=== PATIENT | female | born 1965 | race Caucasian/White ===

== ENCOUNTER → 2016-04-27 | Day surgery (SDC) | payer BC ==
[~2016-04-27] VITALS: Ht 167.6 cm; Wt 66.1 kg
[~2016-04-27] MED LIST: ACETAMINOPHEN 1000 MG/100 ML VIAL IV ONE; CEPH-459 PO; DO NOT ADM ANY ANTICOAGULANT DRUGS XX PRN; FAMOTIDINE 20 MG/2 ML VIAL ONE; HYDR-3516 PO; HYDR-3533 PO; INSULIN HUMAN REGULAR 1,000 UNITS/10 ML VIAL SQ PRN; IOHEXOL 350 MG/ML 10 ML VIAL (for RAD DIAG) ONE; LACTATED RINGER'S 1000 ML IV SCH; LORA-373 PO; METOPROLOL TARTRATE 25 MG TAB PO PRN; MIDAZOLAM HCL 2 MG/2 ML VIAL ONE; ONDANSETRON HCL 4 MG/2 ML VIAL IV PUSH ONE; ONDANSETRON HCL 4 MG/2 ML VIAL IV PUSH PRN; PERC5TAB12 PO; PNEU13P IM; PROPOFOL 200 MG/20 ML AMP IV ONE; SODIUM CHLORID 0.9% 500 ML IV SCH; TAMS5CAP PO; UROCTAB2 PO; ZOFR4TAB3 SL; ZOLO100T PO; ZOLO50TA PO; ePHEDrine/NS 25 MG/5 ML SYR IV ONE; oxyCODONE/ACETAMINOPHEN 5 MG/325 MG TAB PO PRN
[2016-04-27 07:20] VITALS: BP 139/79; PULSE 83; RESP 18; TEMP 98.1; O2SAT 98
[2016-04-27 07:34] LABS: AUTOMATED NEUTROPHIL # 1.7 TH/MM3 (1.8-7.7); BASOPHIL % 0.7 % (0.0-2.0); EOSINOPHIL # 0.1 TH/MM3 (0-0.4); EOSINOPHIL % 3.6 % (0.0-4.0); HEMATOCRIT 37.2 % (35.0-46.0); HEMO FLAGS DIFF FINAL; LYMPH % 45.2 % (9.0-44.0); LYMPHOCYTE # 1.8 TH/MM3 (1.0-4.8); MEAN CELL VOLUME 86.7 FL (80.0-100.0); MEAN CORPUSCULAR HEMOGLOBIN 30.1 PG (27.0-34.0); MEAN CORPUSCULAR HGB CONC 34.7 % (32.0-36.0); MONO % 10.1 % (0.0-8.0); NEUT % 40.4 % (16.0-70.0); PLATELET COUNT 179 TH/MM3 (150-450); RED BLOOD COUNT 4.29 MIL/MM3 (4.00-5.30); WHITE BLOOD COUNT 4.1 TH/MM3 (4.0-11.0)
--- NOTE | 2016-04-27 08:06 | RADRPT ---
EXAM DATE/TIME: 04/27/2016 07:38 [facility] COMPARISON: No previous studies available for comparison. INDICATIONS : Preop for left side ESWL. Renal calculi. MEDICAL HISTORY : Renal calculi. SURGICAL HISTORY : None. ENCOUNTER: Initial ACUITY: 1 day PAIN SCORE: 6/10 LOCATION: Left upper quadrant abdomen FINDINGS: There are several stones overlying the left kidney including 10 mm and 14 mm calculi overlying the ce ntral kidney and a 6 mm stone overlying the lower pole region. No suspicious calcifications are seen overlying the right flank. There are couple phleboliths overlie the pelvis. Intestinal gas pattern is nonspecific and benign. Regional skeleton grossly intact. CONCLUSION: Several left kidney stones Alin Rao MD on April 27, 2016 at 8:02 Board Certified Radiologist. This report was verified electronically.
--- NOTE | 2016-04-27 09:58 | PD.OP ---
Operative Report Date of Surgery: Apr 27, 2016 Preoperative Diagnosis: (1) Renal calculus, left Postoperative Diagnosis: (1) Renal calculus, left Procedure: Cystoscopy, left retrograde pyelogram, left ureteral stent placement and extracorporeal shockwave lithotripsy of left renal calculi Anesthesia: General Surgeon: Burton Rhodes Gas Appliance Adjuster(s): None Operation and Findings: Indication for procedure: Case of a pleasant 51-year-old female with history multiple large left renal calculi who presents today to undergo cystoscopy, left retrograde pyelogram, left ureteral stent placement and shockwave lithotripsy. Operative procedure in detail: Patient was brought to the operating room suite and placed supine on the lithotripsy table. She was then placed under general anesthesia. She was then repositioned in the dorsal lithotomy position and prepped and draped in normal sterile fashion. After appropriate timeout was undertaken her proceeded with cystoscopic evaluation utilizing the rigid cystoscope with the 20 Malawian sheath and 30 lens. Both right and left ureteral orifices were in correct anatomic position effluxing clear yellow urine. There were no bladder mucosal lesions, calculi or diverticula formation. I then utilized a 5 Malawian open-ended ureteral catheter and performed a left retrograde pyelogram to outline the collecting system. A 0.35 sensor wire was easily advanced up the left ureter with the tip coiled within the left renal pelvis. The open-ended catheter was then exchanged for a 24 cm 6 Malawian alf stent. The stent was passed under both cystoscopic and fluoroscopic guidance without difficulty. Was a stent was in proper position the trailing string was removed. The bladder was drained of irrigant fluid and the cystoscope withdrawn. The patient was then repositioned in the supine position and subsequently received extraoral shockwave lithotripsy. The Yuppics Piezolith 3000 device was utilized and the patient received a total of 3000 shocks with a maximum power level setting of 20. The cluster stones located at the mid to upper left kidney appeared to spread out somewhat consistent with fragmentation. The patient tolerated the procedures without complications and was transferred to PACU in satisfactory condition. Burton Rhodes MD Apr 27, 2016 09:58
[2016-04-27 11:51] VITALS: BP 121/61; PULSE 79; RESP 20; TEMP 97.4; O2SAT 95
== END | disposition home or self-care (01) ==
LOC: HSDC 06:40
PROVIDERS: ATTEND Urology
DX: N20.0 Calculus of kidney (principal)
CPT/HCPCS: 00873; 50590; 52332; 74000; 82310; 83970; 85025; C1769; J0131; J2250; J2405; J3010; J7120; Q9967

== ENCOUNTER 2016-06-03 06:44 | Observation (INO) | payer BC ==
[~2016-06-03] VITALS: Ht 167.6 cm; Wt 61.4 kg
[2016-06-03] VITALS (11 sets, daily range): BP systolic 89–131; BP diastolic 54–90; PULSE 64–90; RESP 18–20; TEMP 96.1–98; O2SAT 92–98
[~2016-06-03 06:44] MED LIST changes: -ACETAMINOPHEN 1000 MG/100 ML VIAL IV ONE; -CEPH-459 PO; -DO NOT ADM ANY ANTICOAGULANT DRUGS XX PRN; -FAMOTIDINE 20 MG/2 ML VIAL ONE; -HYDR-3516 PO; -INSULIN HUMAN REGULAR 1,000 UNITS/10 ML VIAL SQ PRN; -IOHEXOL 350 MG/ML 10 ML VIAL (for RAD DIAG) ONE; -LACTATED RINGER'S 1000 ML IV SCH; -METOPROLOL TARTRATE 25 MG TAB PO PRN; -MIDAZOLAM HCL 2 MG/2 ML VIAL ONE; -ONDANSETRON HCL 4 MG/2 ML VIAL IV PUSH ONE; -ONDANSETRON HCL 4 MG/2 ML VIAL IV PUSH PRN; -PERC5TAB12 PO; -PROPOFOL 200 MG/20 ML AMP IV ONE; -SODIUM CHLORID 0.9% 500 ML IV SCH; -UROCTAB2 PO; -ZOFR4TAB3 SL; -ZOLO50TA PO; -ePHEDrine/NS 25 MG/5 ML SYR IV ONE; -oxyCODONE/ACETAMINOPHEN 5 MG/325 MG TAB PO PRN
[2016-06-03] MEDS: SODIUM CHLORIDE 0.9% 1000 ML IV SCH (07:30)
[2016-06-03] MEDS ORDERED: LEVOFLOXACIN 500 MG PREMIX 100 ML - nephrostomy tube insertion or exchange IV SCH (07:30)
[2016-06-03 07:58] LABS: APTT (PATIENT) 27.9 SEC (24.3-30.1); PROTHROMBIN TIME - PATIENT 10.5 SEC (9.8-11.6)
[2016-06-03] MEDS ORDERED: fentaNYL CITRATE 250 MCG/5 ML AMP ONE (08:39)
[2016-06-03] MEDS ORDERED: MIDAZOLAM HCL 5 MG/5 ML VIAL ONE (08:39)
[2016-06-03] MEDS ORDERED: IOHEXOL 350 MG/ML 50 ML BTL (for RAD DIAG) ONE (09:29)
--- NOTE | 2016-06-03 09:37 | PD.RAD ---
Post Procedure Progress Note Pre Procedure Diagnosis: (1) Kidney stone on left side Post Procedure Diagnosis: (1) Kidney stone on left side Procedure Date: Jun 03, 2016 Supervising Radiologist: Alin Rao Proceduralist/Assist: RT Jefry(R)() Anesthesia: Local, Conscious Sedation Plan of Activity Patient to Unit: ROPU Patient Condition: Good See PACS Report for procedural detail/treatment Drainage Procedure Procedure 1 Imaging Guidance: Fluoroscopy Side: Left Procedure Type: Nephrostomy, Ureteral Stent Procedure: Placement Drainage: [place] drainage Alin Rao MD Jun 03, 2016 09:37
[2016-06-03] MEDS ORDERED: oxyCODONE/ACETAMINOPHEN 5 MG/325 MG TAB PO PRN (09:45)
[2016-06-03] MEDS ORDERED: HYDROmorphone HCL PF 1 MG/ML VIAL IVS PRN ×2 (09:45)
[2016-06-03] MEDS: oxyCODONE/ACETAMINOPHEN 5 MG/325 MG TAB PO PRN ×2 (09:54→11:46)
--- NOTE | 2016-06-03 10:40 | RADRPT ---
EXAM DATE/TIME: 06/03/2016 08:58 [facility] COMPARISON: No previous studies available for comparison. INDICATIONS : Patient with a history of left renal calculi. MEDICAL HISTORY : Kidney stones Panic disorders Anxiety SURGICAL HISTORY : Lt ureteral stent Shockwave lithotripsy ENCOUNTER: Initial ACUITY: 1 month PAIN SCORE: 4/10 LOCATION: Left lower quadrant FLUORO TIME: 6.4 minutes IMAGE SERIES: 1 SEDATION TIME: 15 minutes CONTRAST: 10 cc Omnipaque (iohexol) 350 MEDICATION(S): 1.) 3 mg midazolam (Versed) IV 2.) 150 mcg fentanyl (Sublimaze) IV Prophylactic antibiotics were administered with appropriate pre-procedure timing. DEVICE(S): 1.) 8 Lithuanian nephrostomy catheter 2.) 4FR [place] Cobra catheter PROCEDURE : 1.percutaneous nephrostomy 2. ureteral stent placement with fluoroscopic guidance TECHNIQUE: The patient was placed prone on the fluoroscopy table. The back was prepped in sterile fashion. Full sterile technique was used, including cap, mask, sterile gloves and gown and a large s terile sheet. Hand hygiene and 2% chlorhexidine and/or betadine/alcohol prep was [facility] cutaneous [facility]epsis. The skin and subcutaneous tissues were infiltrated with local anesthetic solution. Under direct ultrasound and fluoroscopic guidance, a 22 gauge Chiba needle was used to access the uri nary collecting system at an appropriate location for management of the patient's stones. A 0.018 inc h guidewire was introduced and manipulated into the proximal ureter. The AccuStick dilator was introd uced. The transparenchymal tract was tested over a Toughy-Dalia adapter revealing direct access into the collecting system with no vascular opacification noted. The AccuStick sheath was then inserted. A 0.035 inch Glidewire was introduced through the sheath and directed into the ureter. The sheath was removed. A 4 Lithuanian catheter was used to assist with manipulation of the guidewire down the ureter an d into the urinary bladder under direct fluoroscopic guidance. Small volume contrast injection reveal ed satisfactory positioning in the bladder lumen. A FlexFinder guidewire was inserted and coiled into the bladder. A 5 Lithuanian vascular sheath was then inserted allowing placement of a second guidewire. A 4 Lithuanian Glidex Cobra catheter was then inserted and manipulated down the left ureter and coiled an d the urinary bladder. An 8 Lithuanian nephrostomy catheter was introduced and formed up in the renal pel vis. The catheters were secured with silk suture and labeled. The nephrostomy was connected to gravit y drainage and the stent catheter was capped. The patient tolerated the procedure well and was taken to recovery in stable condition. Continues pul se oximetry and EKG monitoring with hemodynamic monitoring was performed throughout. Intravenous cons cious sedation was administered as outlined above. CONCLUSION: Uncomplicated left percutaneous nephrostomy and ureteral stent catheter placement as abov e. Alin Rao MD on June 03, 2016 at 10:24 Board Certified Radiologist. This report was verified electronically.
[2016-06-03] MEDS ORDERED: ONDANSETRON HCL 4 MG/2 ML VIAL IV PUSH ONE (13:45)
[2016-06-03] MEDS ORDERED: ONDANSETRON HCL 4 MG/2 ML VIAL ONE (13:50)
[2016-06-03] MEDS ORDERED: LORazepam 0.5 MG TAB PO PRN (15:45)
[2016-06-03] MEDS ORDERED: ACETAMINOPHEN/HYDROcodone 325 MG/5 MG TAB PO PRN (15:45)
[2016-06-03] MEDS: KETOROLAC TROMETHAMINE 30 MG/ML (IVP) VIAL IV PUSH PRN ×2 (15:56→22:22)
--- NOTE | 2016-06-03 16:42 | PD.CONS ---
HPI Service [facility] Hospitalists Consult Requested By Dr. Rao Reason for Consult Pain management Primary Care Physician Eduarda Veloz MD Diagnoses: History of Present Illness This is a pleasant 51-year-old female with history of multiple large left renal calculi who underwent left percutaneous nephrostomy tube placement in interventional radiology. Postprocedure, patient had significant pain, was very anxious and panicky. Indicates that this is the first time she's had a percutaneous drain placed and did not expect this type of pain. In April, she underwent cystoscopy, left retrograde pyelogram, left ureteral stent placement and extracorporeal shockwave lithotripsy of left renal calculi. Indicates she is due to have another procedure this Monday. She doesn't want to take IV narcotics, states that she doesn't like the way they make her feel. Toradol has been given and her pain is well-controlled. Indicates the pain is worst when she moves but at this time it is stable. Denies any chest pain, no shortness of breath, has had dysuria. Denies any fever, chills. Hospitalist services are requested for pain management and overnight admission. ([facility]) Review of Systems Constitutional: DENIES: Diaphoretic episodes, Fatigue, Fever, Weight gain, Weight loss, Chills, Dizziness, Change in appetite, Night Sweats Endocrine: DENIES: Abnorml menstrual pattern, Heat/cold intolerance, Polydipsia , Polyuria, Polyphagia Eyes: DENIES: Blurred vision, Diplopia, Eye inflammation, Eye pain, Vision loss , Photosensitivity, Double Vision Ears, nose, mouth, throat: DENIES: Tinnitus, Hearing loss, Vertigo, Nasal discharge, Oral lesions, Throat pain, Hoarseness, Ear Pain, Running Nose, Epistaxis, Sinus Pain, Toothache, Odynophagia Respiratory: DENIES: Apneas, Cough, Snoring, Wheezing, Hemoptysis, Sputum production, Shortness of breath Cardiovascular: DENIES: Chest pain, Palpitations, Syncope, Dyspnea on Exertion , PND, Lower Extremity Edema, Orthopnea, Claudication Gastrointestinal: DENIES: Abdominal pain, Black stools, Bloody stools, Constipation, Diarrhea, Nausea, Vomiting, Difficulty Swallowing, Anorexia Genitourinary: DENIES: Abnormal vaginal bleeding, Dysmenorrhea, Dyspareunia, Sexual dysfunction, Urinary frequency, Urinary incontinence, Urgency, Hematuria , Dysuria, Nocturia, Vaginal discharge Musculoskeletal: DENIES: Joint pain, Muscle aches, Stiffness, Joint Swelling, Back pain, Neck pain Integumentary: DENIES: Abnormal pigmentation, Pruritus, Rash, Nail changes, Breast masses, Breast skin changes, Nipple discharge Hematologic/lymphatic: DENIES: Bruising, Lymphadenopathy Immunologic/allergic: DENIES: Eczema, Urticaria Neurologic: DENIES: Abnormal gait, Headache, Localized weakness, Paresthesias, Seizures, Speech Problems, Tremor, Poor Balance Psychiatric: COMPLAINS OF: Anxiety, DENIES: Confusion, Mood changes, Depression, Hallucinations, Agitation, Suicidal Ideation, Homicidal Ideation, Delusions Other Left flank pain, anxiety (Rosey Voss) Past Family Social History Past Medical History Elevated LFTs, possibly secondary to supplements and vitamins, now back to normal. Anxiety, panic disorder. Left kidney stones Hypothyroid Past Surgical History status post lithotripsy 2. Cystoscopy, left retrograde pyelogram, left ureteral stent placement and extracorporeal shockwave lithotripsy of left renal calculi 04/27/2016 Reported Medications Reported Meds & Active Scripts Active Zoloft (Sertraline HCl) 100 Mg Tab 100 Mg PO DAILY next refill must be from mental health (05/25/16) Lortab (Hydrocodone-Acetaminophen) 5-325 Mg Tab 1-2 Tab PO Q6H PRN Reported Lorazepam 0.5 Mg Tab 0.5 Mg PO DAILY PRN (Rosey Voss) Allergies: Coded Allergies: *MDRO Multi-Drug Resistant Organism (Verified Allergy, Unknown, 04/26/16) MRSA Active Ordered Medications Inpatient Medications Acetaminophen/ Hydrocodone Bitart ([place]lake 5-325 Mg) 1 tab Q6H PRN PO PAIN 1-3; Start 06/03/16 at 15:45 Hydromorphone HCl (Dilaudid Pf Inj) 1 mg UNSCH PRN IVS PAIN SCALE 6 TO 10; Start 06/03/16 at 09:45 Ketorolac Tromethamine (Toradol Inj) 15 mg Q6H PRN IV PUSH pain 4-10 Last administered on 06/03/16t 15:56; Start 06/03/16 at 15:45 Levofloxacin/ Dextrose (Levaquin 500 Mg Premix Inj) 100 ml @ 100 mls/hr FISH CUTTER IV Last administered on 06/03/16 07:39; Start 06/03/16 at 07:30; Stop at 07:29 Lorazepam (Ativan) 0.5 mg DAILY PRN PO ANXIETY; Start 06/03/16 at 15:45 Oxycodone/ Acetaminophen (Percocet 5-325 Mg) 1 tab UNSCH PRN PO PAIN SCALE 1 TO 5; Start 06/03/16 at 09:45 Sertraline HCl (Zoloft) 100 mg DAILY PO ; Start 06/04/16 at 09:00 Sodium Chloride 1,000 ml @ 30 mls/hr Q24H IV Last administered on 06/03/16 07 :30; Start 06/03/16 at 07:30; Stop 06/06/16 at 07:29 Family History Mother at age 68, she was diagnosed with gallbladder cancer. She fell and suffered a PE. Father at age 81, sudden /unknown She has 2 siblings, 56 and 62, alive and well. Grandparents lived to advanced age 81, 102, 97 and 94 respectively. Social History Works as a respiratory therapist at [employer].. She is originally from [place]. She is , has 4 adult children. No tobacco, no alcohol, no substance abuse. (Rosey Voss) Physical Exam Vital Signs Vital Signs Date Time Temp Pulse Resp B/P Pulse Ox O2 Delivery O2 Flow Rate FiO2 06/03/16 15:15 68 18 108/59 96 06/03/16 14:15 113/65 06/03/16 13:45 90 18 89/54 92 06/03/16 11:45 75 18 111/76 94 06/03/16 10:45 72 18 105/67 95 06/03/16 10:15 64 18 111/78 97 06/03/16 09:45 71 18 116/75 93 06/03/16 09:30 97.6 77 18 113/76 94 06/03/16 07:30 95 Room Air 06/03/16 07:09 98.0 75 20 131/90 95 Physical Exam GENERAL: This is a well-nourished, well-developed patient, in no apparent distress. SKIN: No rashes, ecchymoses or lesions. Cool and dry. HEAD: Atraumatic. Normocephalic. No temporal or scalp tenderness. EYES: Pupils equal round and reactive. Extraocular motions intact. No scleral icterus. No injection or drainage. ENT: Nose without bleeding, purulent drainage or septal hematoma. Throat without erythema, tonsillar hypertrophy or exudate. Uvula midline. Airway patent. NECK: Trachea midline. No JVD or lymphadenopathy. Supple, nontender, no meningeal signs. CARDIOVASCULAR: Regular rate and rhythm without murmurs, gallops, or rubs. RESPIRATORY: Clear to auscultation. Breath sounds equal bilaterally. No wheezes , rales, or rhonchi. GASTROINTESTINAL: Abdomen soft, non-tender, nondistended. No hepato-splenomegaly , or palpable masses. No guarding. Left flank noted with nephrostomy percutaneous drain, hematuria noted. MUSCULOSKELETAL: Extremities without clubbing, cyanosis, or edema. No joint tenderness, effusion, or edema noted. No calf tenderness. Negative Homans sign bilaterally. NEUROLOGICAL: Awake and alert. Cranial nerves II through XII intact. Motor and sensory grossly within normal limits. Five out of 5 muscle strength in all muscle groups. Normal speech. Laboratory Laboratory Tests Test 06/03/16 07:30 Prothrombin Time 10.5 Prothromb Time International 1.0 Ratio Activated Partial 27.9 Thromboplast Time (Rosey Voss) Imaging Last Impressions Ureteral Stent Placement 06/03/16 0736 Signed Impressions: Service Date/Time: Friday, June 03, 2016 08:58 - CONCLUSION: Uncomplicated left percutaneous nephrostomy and ureteral stent catheter placement as above. Alin Rao MD ([facility]y Voss) A/P Diagnosis: (1) Uncontrolled pain (2) Panic anxiety syndrome (3) percutaneous left nephrostomy (4) Renal calculus, left (5) Hydronephrosis determined by ultrasound Assessment and Plan Thank you for this consultation, we will assist with medical management 51-year-old with history of kidney stones, status post left percutaneous nephrostomy tube placement. Postprocedure, patient with significant pain very anxious. Admitted overnight for postoperative pain control. Patient reluctant to take IV narcotics -Continue with pain management, Toradol 50 mg IV every 6 when necessary, -[place] 5 one tablet every 6 when necessary for pain, Dilaudid 1 mg every 3 when necessary for severe pain. History multiple large left renal calculi, status post left percutaneous nephrostomy tube placement. Recent cystoscopy, left retrograde pyelogram, left ureteral stent placement and shockwave lithotripsy in April. Monitor urine output Monitor surgical site -Patient due to have another urological procedure on Monday. Anxiety and panic attacks Ativan when necessary Home medications reviewed, initiated as indicated SCDs for DVT prophylaxis Plan of care has been discussed with the patient, attending and registered nurse. Further management of the patient will be dependent on the hospital course If the patient remains stable, she will likely be discharged tomorrow morning This patient was seen by myself and Dr. Hutchinson, this consultation is written on his behalf (Rosey Voss) Assessment and Plan seen and examined by myself , Dr Hutchinson in room F 66 in the ED LEFT FLANK pain following left perc nephrostomy pain better with Toradol (Radha Hutchinson MD) Rosey Voss Jun 03, 2016 16:42 Radha Hutchinson MD Jun 03, 2016 17:41
[2016-06-03 19:34] LABS: BICARBONATE 26.6 MEQ/L (21.0-32.0); INDIRECT BILIRUBIN 0.1 MG/DL (0.0-0.8); MAGNESIUM 1.8 MG/DL (1.5-2.5); POTASSIUM 3.7 MEQ/L (3.5-5.1); TOTAL BILIRUBIN ADULT 0.2 MG/DL (0.2-1.0)
--- NOTE | 2016-06-03 19:34 | HHI.DCPOC ---
Discharge Care Plan Diagnosis: (1) Uncontrolled pain (2) Renal calculus, left (3) percutaneous left nephrostomy Your Health Problems Are: Anxiety Inflammation Urinary Difficulties Goals to Promote Your Health * To prevent worsening of your condition and complications * To maintain your health at the optimal level Directions to Meet Your Goals Take your medications as prescribed Follow your dietary instruction Follow activity as directed Keep your appointments as scheduled Take your immunizations and boosters as scheduled If your symptoms worsen call your PCP, if no PCP go to Urgent Care Center or Emergency Room Smoking is Dangerous to Your Health. Avoid second hand smoke Call the 24-hour hour crisis hotline for domestic abuse at [facility]. [facility] Jun 03, 2016 19:33
[2016-06-04 00:14] VITALS: BP 101/58; PULSE 68; RESP 18; TEMP 97.6; O2SAT 96
[2016-06-04] MEDS: KETOROLAC TROMETHAMINE 30 MG/ML (IVP) VIAL IV PUSH PRN ×2 (06:25→13:57)
[2016-06-04 06:28] VITALS: BP 100/55; PULSE 71; RESP 18; TEMP 97.6; O2SAT 96
[2016-06-04 08:06] LABS: BASOPHIL % 0.6 % (0.0-2.0); EOSINOPHIL # 0.2 TH/MM3 (0-0.4); EOSINOPHIL % 4.7 % (0.0-4.0); HEMATOCRIT 36.1 % (35.0-46.0); HEMO FLAGS DIFF FINAL; LYMPH % 40.9 % (9.0-44.0); LYMPHOCYTE # 1.9 TH/MM3 (1.0-4.8); MEAN CELL VOLUME 87.3 FL (80.0-100.0); MEAN CORPUSCULAR HEMOGLOBIN 29.1 PG (27.0-34.0); MEAN CORPUSCULAR HGB CONC 33.4 % (32.0-36.0); MONO % 9.6 % (0.0-8.0); NEUT % 44.2 % (16.0-70.0); PLATELET COUNT 193 TH/MM3 (150-450); RED BLOOD COUNT 4.14 MIL/MM3 (4.00-5.30); RED CELL DISTRIBUTION WIDTH 13.1 % (11.6-17.2); WHITE BLOOD COUNT 4.5 TH/MM3 (4.0-11.0)
[2016-06-04 08:30] VITALS: BP 112/62; PULSE 75; RESP 18; O2SAT 96
[2016-06-04] MEDS ORDERED: SERTRALINE HCL 100 MG TAB PO SCH (09:00)
[2016-06-04] MEDS: SODIUM CHLORIDE 0.9% 1000 ML IV SCH (10:51)
--- NOTE | 2016-06-04 11:44 | HHI.PR ---
Subjective Interval History Alert, oriented, pain well-controlled, concerned about low blood pressure Review of Systems Constitutional Constitutional Remarks Mild left flank pain, mild anxiety, 10 systems reviewed and otherwise negative Vitals/Results Intake & Output 06/03/16 06/03/16 06/04/16 15:00 23:00 07:00 Intake Total 750 ml 600 ml Output Total 850 ml Balance -100 ml 600 ml Intake Oral 600 ml IV Total 750 ml Output Urine Total 850 ml # Voids 2 1 Vital Signs Vital Signs Date Time Temp Pulse Resp B/P Pulse Ox O2 Delivery O2 Flow Rate FiO2 06/04/16 08:30 75 18 112/62 96 06/04/16 06:28 97.6 71 18 100/55 96 06/04/16 00:14 97.6 68 18 101/58 96 06/03/16 19:24 98.0 74 20 103/58 96 06/03/16 17:24 96.1 68 18 99/63 98 06/03/16 15:15 68 18 108/59 96 06/03/16 14:15 113/65 06/03/16 13:45 90 18 89/54 92 06/03/16 11:45 75 18 111/76 94 CBC/BMP: 06/04/16 0714 06/03/16 1845 Lab Results Laboratory Tests Test 06/03/16 06/04/16 18:45 07:14 Sodium Level 137 MEQ/L Potassium Level 3.7 MEQ/L Chloride Level 104 MEQ/L Carbon Dioxide Level 26.6 MEQ/L Anion Gap 6 MEQ/L Blood Urea Nitrogen 10 MG/DL Creatinine 0.89 MG/DL Estimat Glomerular Filtration 66 ML/MIN Rate Random Glucose 114 MG/DL Lactic Acid Level 1.4 mmol/L Calcium Level 8.7 MG/DL Phosphorus Level 3.1 MG/DL Magnesium Level 1.8 MG/DL Total Bilirubin 0.2 MG/DL Direct Bilirubin 0.1 MG/DL Indirect Bilirubin 0.1 MG/DL Aspartate Amino Transf 21 U/L (AST/SGOT) Alanine Aminotransferase 32 U/L (ALT/SGPT) Alkaline Phosphatase 82 U/L Total Protein 6.9 GM/DL Albumin 3.4 GM/DL White Blood Count 4.5 TH/MM3 Red Blood Count 4.14 MIL/MM3 Hemoglobin 12.1 GM/DL Hematocrit 36.1 % Mean Corpuscular Volume 87.3 FL Mean Corpuscular Hemoglobin 29.1 PG Mean Corpuscular Hemoglobin 33.4 % Concent Red Cell Distribution Width 13.1 % Platelet Count 193 TH/MM3 Mean Platelet Volume 8.2 FL Neutrophils (%) (Auto) 44.2 % Lymphocytes (%) (Auto) 40.9 % Monocytes (%) (Auto) 9.6 % Eosinophils (%) (Auto) 4.7 % Basophils (%) (Auto) 0.6 % Neutrophils # (Auto) 2.0 TH/MM3 Lymphocytes # (Auto) 1.9 TH/MM3 Monocytes # (Auto) 0.4 TH/MM3 Eosinophils # (Auto) 0.2 TH/MM3 Basophils # (Auto) 0.0 TH/MM3 CBC Comment DIFF FINAL Differential Comment Physical Exam General General Appearance: Well Nourished, Comfortable, Anxious Eyes Eye Exam: Pupils Reactive Ears & Nose Ears & Nose Exam: Nasal Mucosa [place] Throat Throat Exam: Oral Mucosa [place] & Moist Neck Neck Exam: Trachea Midline Pulmonary Resp Exam: Breath Sounds Equal, No Distress Cardiology CV Exam: Normal Sinus Rhythm, Good Perfusion Gastrointestinal/Abdomen GI Exam: Non-Tender, Bowel Sounds Present Musculoskeletal MS Exam: Normal Tone, Good Strength Integumentary Skin Exam: Warm, Dry Extremeties Extremities Exam: No Edema Neurologic Neuro Exam: Alert, Awake, Oriented, Speech Clear, Moving All Extremities, Fireboat Operator Equal, No Focal Deficits Psychiatric Psych Exam: Appropriate Responses Assessment/Plan Assessment/Plan Diagnosis: Relatively low blood pressure Uncontrolled pain, better controlled now Panic anxiety syndrome, well controlled percutaneous left nephrostomy , without problems Renal calculus, left Hydronephrosis determined by ultrasound Plan IV fluids Check orthostatics Give IV albumin if orthostatics are positive Continue high intake of oral liquids Advice to have high intake of salt for the next few days Could be discharged home later today Continue pain management with as needed Lortab Discussed with patient Discussed with nurse Radha Hutchinson MD Jun 04, 2016 11:44
[2016-06-04] MEDS ORDERED: ALBUMIN HUMAN 25% 12.5 GM/50 ML BAGP IV ONE (11:45)
[2016-06-04 12:05] VITALS: BP_SYST 107; BP_SYST 114; BP_DIAS 58; BP_DIAS 65; PULSE 84; RESP 18; TEMP 96.8; O2SAT 84
[2016-06-14] MEDS ORDERED: CEPH-459 PO (08:32)
[2016-06-30] MEDS ORDERED: UROCTAB2 PO (12:20)
== END 2016-06-04 16:54 | disposition home or self-care (01) ==
LOC: HROP 06:44 → HRIP 06:51 → HROP 17:12 → NEPFCDU 17:13
PROVIDERS: ADMIT Urology; ATTEND Urology
DX: N13.2 Hydronephrosis with renal and ureteral calculous obstruction (principal); G89.18 Other acute postprocedural pain; E03.9 Hypothyroidism, unspecified; F41.0 Panic disorder [episodic paroxysmal anxiety]
CPT/HCPCS: 50695; 80048; 80076; 83605; 83735; 84100; 85025; 85610; 85730; 99152; C1729; C1769; C1887; C1894; G0378; J1170; J1885; J1956; J2250; J2405; J3010; J7030; Q9967

== ENCOUNTER 2016-06-06 06:12 | Observation (INO) | payer BC ==
[~2016-06-06] VITALS: Ht 167.6 cm; Wt 65.7 kg
[~2016-06-06 06:12] MED LIST changes: -TAMS5CAP PO
[2016-06-06] MEDS ORDERED: ceFAZolin 1,000 MG/NS 100 ML IV SCH ×2 (06:45)
[2016-06-06] MEDS ORDERED: INSULIN HUMAN REGULAR 1,000 UNITS/10 ML VIAL SQ PRN (07:00)
[2016-06-06] MEDS ORDERED: SODIUM CHLORID 0.9% 500 ML IV PRN (07:00)
[2016-06-06] MEDS ORDERED: METOPROLOL TARTRATE 25 MG TAB PO PRN (07:00)
[2016-06-06] MEDS ORDERED: CHLORHEXIDINE GLUCONATE 2 % 1 PACK (2 CLOTHS) TOPICAL PRN (07:00)
[2016-06-06] MEDS ORDERED: LACTATED RINGER'S 1000 ML IV PRN (07:00)
[2016-06-06] MEDS ORDERED: POVIDONE IODINE 5% (ANTISEPSIS KIT) 4 APPLICATIONS EACH NARE PRN (07:00)
[2016-06-06 07:02] VITALS: BP 121/82; PULSE 72; RESP 16; TEMP 97.6; O2SAT 95
[2016-06-06 07:34] LABS: AUTOMATED NEUTROPHIL # 2.1 TH/MM3 (1.8-7.7); EOSINOPHIL # 0.3 TH/MM3 (0-0.4); EOSINOPHIL % 6.3 % (0.0-4.0); HEMATOCRIT 36.3 % (35.0-46.0); HEMO FLAGS DIFF FINAL; LYMPH % 38.8 % (9.0-44.0); LYMPHOCYTE # 1.8 TH/MM3 (1.0-4.8); MEAN CELL VOLUME 86.5 FL (80.0-100.0); MEAN CORPUSCULAR HEMOGLOBIN 30.1 PG (27.0-34.0); MEAN CORPUSCULAR HGB CONC 34.8 % (32.0-36.0); MONO % 8.6 % (0.0-8.0); NEUT % 45.3 % (16.0-70.0); PLATELET COUNT 220 TH/MM3 (150-450); RED BLOOD COUNT 4.19 MIL/MM3 (4.00-5.30); RED CELL DISTRIBUTION WIDTH 13.6 % (11.6-17.2); WHITE BLOOD COUNT 4.6 TH/MM3 (4.0-11.0)
[2016-06-06] MEDS ORDERED: ACETAMINOPHEN 1000 MG/100 ML VIAL IV ONE (07:45)
[2016-06-06] MEDS ORDERED: MIDAZOLAM HCL 2 MG/2 ML VIAL ONE (07:56)
[2016-06-06] MEDS ORDERED: IOHEXOL 300 MG/ML 50 ML BTL (for RAD DIAG) ONE (08:53)
[2016-06-06] MEDS ORDERED: Post-op Orders (for Pharmacy) MISC XX ONE (10:59)
--- NOTE | 2016-06-06 11:04 | PD.OP ---
Operative Report Date of Surgery: Jun 06, 2016 Preoperative Diagnosis: (1) Renal calculus, left Postoperative Diagnosis: (1) Renal calculus, left Procedure: Left percutaneous nephrolithotomy, left nephrostogram and exchange of left nephrostomy tube Anesthesia: General Surgeon: Burton Rhodes Chartered Wealth Manager(s): None Operation and Findings: Indication for procedure: Case of a pleasant 51-year-old female with multiple large left renal calculi refractory to shockwave lithotripsy who presents now to undergo a left percutaneous nephrolithotomy. Patient had a left nephrostomy tube placed by interventional radiology several days ago. Procedure in detail: Patient was brought to the operating suite and placed under general endotracheal anesthesia while still on the stretcher. She was then moved over to the OR table in the prone position. All pressure points were adequately padded. Next she was prepped and draped in normal sterile fashion. After an appropriate timeout was undertaken I proceeded with advancing a sensor 0.035 wire down the previously placed nephroureteral catheter. The wire was easily advanced all the way down to the patient's urinary bladder and the catheter was withdrawn. The 8 [place] pigtail nephrostomy tube was then removed over a wire as well without any difficulty. The nephrostomy tube site was enlarged with a #11 blade Debbi 1 cm in length and a NephroMax balloon dilatation catheter was advanced over the wire with the tip of the balloon catheter within the left renal pelvis as evident on fluoroscopy. The balloon was then inflated to 20 mt of pressure and the nephrostomy sheath was easily advanced over the balloon and the balloon subsequently deflated and withdrawn. The nephroscope was then utilized and advanced through the sheath with easy entry into the left renal pelvis. The upper coil of the previously placed double-J stent could be clearly seen. A second 0.035 wire was advanced through the nephroscope and further advanced into the urinary bladder is evident with fluoroscopy and the scope was withdrawn. The 2 guidewires were then secured to a sterile drape with hemostat. The nephroscope was reintroduced through the sheath and the stones involving the left renal pelvis were clearly visualized. The [employer] wand was utilized to break up the stones under direct vision. Several of the larger fragments were retrieved with the flexible forceps and sent off for chemical analysis. I systematically explored the left kidney utilizing fluoroscopy to track and fragment the multiple left renal calculi. When I could no longer reach any stone fragments with nephroscope. If possible cystoscope was utilized and several small fragments were removed with the 2.4 [place] Islander basket under direct vision. Fluoroscopy failed to demonstrate any significant remaining stones and the flexible cystoscope was withdrawn. I next placed a 12 [place] pigtail nephrostomy tube under fluoroscopic guidance over one of the previously past guidewires and the loop was coiled within the left renal pelvis. The tethering cord was adjusted and locked to keep the loop coiled. A nephrostogram was then performed to outline the collecting system and verify placement of the nephrostomy tube. The nephrostomy tube was secured to the skin with a 2-0 silk stitch and a sterile dressing placed around the nephrostomy site. Patient tolerated the procedures well without complications and was transferred to the PACU in satisfactory condition. Burton Rhodes MD Jun 06, 2016 11:04
[2016-06-06] MEDS ORDERED: HYDROmorphone HCL PF 2 MG/ML VIAL IV PRN (11:15)
[2016-06-06] MEDS ORDERED: SODIUM CHLORIDE 0.9% FLUSH 10 ML FLUSH IV FLUSH PRN (11:15)
[2016-06-06] MEDS: LACTATED RINGER'S 1000 ML INJ 1,000 ML IV SCH ×2 (11:42→21:09)
[2016-06-06] MEDS ORDERED: DO NOT ADM ANY ANTICOAGULANT DRUGS PRN (11:45)
[2016-06-06] MEDS ORDERED: *MEPERIDINE 25 MG INJ VIAL PERIprocedural Use ONLY ONE (11:45)
[2016-06-06] MEDS ORDERED: *ONDANSETRON 4 MG VIAL PERIprocedural Use ONLY ONE (11:52)
[2016-06-06] MEDS ORDERED: ONDANSETRON HCL 4 MG/2 ML VIAL IV PUSH ONE (12:00)
[2016-06-06] MEDS ORDERED: PHENYLEPH/NS 1000 MCG/10 ML SYR IV ONE (12:00)
[2016-06-06] MEDS ORDERED: PROPOFOL 200 MG/20 ML AMP IV ONE (12:00)
[2016-06-06] MEDS ORDERED: ePHEDrine/NS 25 MG/5 ML SYR IV ONE (12:00)
[2016-06-06] MEDS ORDERED: NEOSTIGMINE 3 MG/3 ML SYR IV ONE (12:00)
--- NOTE | 2016-06-06 13:27 | RADRPT ---
EXAM DATE/TIME: 06/06/2016 10:04 [facility] COMPARISON: ABDOMEN KUB ONLY, April 27, 2016, 7:38. INDICATIONS : Stones, stent change, left kidney lithotripsy. MEDICAL HISTORY : Left kidney stones. SURGICAL HISTORY : Left kidney lithotripsy. ENCOUNTER: Initial ACUITY: 2 weeks PAIN SCORE: Non-responsive. LOCATION: Left abdomen. FINDINGS: The indwelling left ureteral stent and nephrostomy tube appear to be adequate in position. Faint cont rast of the pelvicalyceal system is noted. There is probable persistent calculus within a lower pole calyx on the left. CONCLUSION: Left internal ureteral stent and nephrostomy tube appear to be adequate in positions. Probable residu al calculus within a lower pole calyx. Segundo Hicks MD on June 06, 2016 at 13:23 Board Certified Radiologist. This report was verified electronically.
[2016-06-06] MEDS ORDERED: fentaNYL CITRATE 250 MCG/5 ML AMP ONE (13:42)
[2016-06-06] MEDS: ONDANSETRON HCL 4 MG/2 ML VIAL IV PRN (14:34)
[2016-06-06] MEDS: HYDROmorphone HCL PF 1 MG/ML VIAL IV PRN (15:08)
[2016-06-06 16:00] VITALS: BP 95/51; PULSE 76; RESP 18; TEMP 96.8; O2SAT 96
[2016-06-06] MEDS ORDERED: PROCHLORPERAZINE INJ 10 MG/2 ML VIAL IM ONE (16:15)
[2016-06-06 20:00] VITALS: BP 92/50; PULSE 50; RESP 19; TEMP 96; O2SAT 92
[2016-06-06] MEDS: SODIUM CHLORIDE 0.9% FLUSH 10 ML FLUSH IV FLUSH SCH (21:00)
[2016-06-06 21:43] VITALS: O2SAT 96
[2016-06-06] MEDS: oxyCODONE/ACETAMINOPHEN 5 MG/325 MG TAB PO PRN (22:44)
[2016-06-07] VITALS: BP 96/67; PULSE 74; RESP 21; TEMP 97.4; O2SAT 94
[2016-06-07] MEDS: oxyCODONE/ACETAMINOPHEN 5 MG/325 MG TAB PO PRN ×4 (03:01→21:42)
[2016-06-07 04:00] VITALS: BP 90/54; PULSE 68; RESP 21; TEMP 97.6; O2SAT 97
[2016-06-07] MEDS: LACTATED RINGER'S 1000 ML INJ 1,000 ML IV SCH (04:22)
[2016-06-07 06:23] LABS: HEMATOCRIT 25.8 % (35.0-46.0); REVIEW FLAG FINAL
[2016-06-07 06:56] LABS: BICARBONATE 27.5 MEQ/L (21.0-32.0); POTASSIUM 3.8 MEQ/L (3.5-5.1)
[2016-06-07 08:00] VITALS: BP 112/68; PULSE 78; RESP 17; TEMP 97.6; O2SAT 96
--- NOTE | 2016-06-07 08:24 | HHI.PR ---
Subjective Patient symptoms today Postop day #1 Feeling better this morning Reports that the nephrostomy tube has been draining well Pain well-managed Objective Vital Signs Vital Signs Date Time Temp Pulse Resp B/P Pulse Ox O2 Delivery O2 Flow Rate FiO2 06/07/16 04:21 18 06/07/16 04:00 97.6 68 21 90/54 97 06/07/16 00:00 97.4 74 21 96/67 94 06/06/16 21:43 96 06/06/16 20:00 96.0 50 19 92/50 92 06/06/16 16:00 96.8 76 18 95/51 96 06/06/16 15:38 18 06/06/16 15:00 65 16 104/65 96 Room Air 06/06/16 14:00 97.9 73 15 101/60 98 Room Air 06/06/16 13:30 69 14 104/60 96 Room Air 06/06/16 13:00 75 13 102/58 97 Room Air 06/06/16 12:30 70 12 98/58 95 Room Air 06/06/16 12:15 73 13 99/60 93 Room Air 06/06/16 12:00 70 14 101/62 94 Room Air 06/06/16 11:45 84 15 104/70 97 Room Air 06/06/16 11:30 64 18 120/76 96 Nasal Cannula 2 06/06/16 11:15 61 12 120/74 98 Nasal Cannula 2 06/06/16 11:02 96.9 85 16 132/82 100 Nasal Cannula 2 Result Diagram: 06/07/16 0531 06/07/16 0531 Imaging KUB study from this morning demonstrated a left nephrostomy tube and left stent to be in good position. No renal or ureteral stones seen on the left side Actual images reviewed Objective Remarks Nephrostomy tube in place draining blood-tinged urine with excellent output Yung catheter in place with minimal output Abdomen soft, nondistended nontender Extremities well-perfused, nontender Medications and IVs Current Medications Medications (Trade) Dose Ordered Sig/Violette Route Start Time Stop Time Status Last Admin Lactated Ringer's 1,000 ml @ 30 mls/hr Q24H PRN IV 06/06/16 07:00 06/09/16 06:59 06/06/16 07:19 Sodium Chloride 500 ml @ 30 mls/hr [id number] PRN IV 06/06/16 07:00 06/09/16 06:59 (Lr 1000 ml Inj) 1,000 ml @ 125 mls/hr Q8H IV 06/06/16 12:00 06/07/16 04:22 (NS Flush) 2 ml UNSCH PRN IV FLUSH 06/06/16 11:15 (NS Flush) 2 ml BID IV FLUSH 06/06/16 21:00 06/06/16 21:00 (Percocet 5-325 Mg) 1 tab Q4H PRN PO 06/06/16 11:15 06/07/16 07:55 (Percocet 5-325 Mg) 2 tab Q4H PRN PO 06/06/16 11:15 06/07/16 03:01 (Dilaudid Pf Inj) 1 mg Q2H PRN IV 06/06/16 11:15 06/06/16 15:08 (Dilaudid Pf Inj) 2 mg Q2H PRN IV 06/06/16 11:15 (Zofran Inj) 4 mg Q6H PRN IV 06/06/16 11:15 06/06/16 14:34 Miscellaneous Information ALL NURSING DEPARTME... UNSCH PRN .XX 06/06/16 11:45 06/07/16 11:44 (Ativan) 0.5 mg HS PRN PO 06/07/16 08:15 UNV Assessment and Plan Assessment and Plan Urologic impression: Status post left percutaneous nephrolithotomy with resolution of the renal calculi Plan: #1 DC Yung #2 encourage ambulation #3 continue with analgesic support #4 possible discharge home tomorrow Burton Rhodes MD Jun 07, 2016 08:24
--- NOTE | 2016-06-07 08:46 | RADRPT ---
EXAM DATE/TIME: 06/07/2016 07:33 [facility] COMPARISON: ABDOMEN KUB ONLY, June 06, 2016, 10:04. INDICATIONS : Status post left percutaneous nephrolithotomy. MEDICAL HISTORY : Kidney stones. SURGICAL HISTORY : Stents in kidney. ENCOUNTER: Initial ACUITY: 2 days PAIN SCORE: 5/10 LOCATION: Left Kidney area. FINDINGS: Two views of the abdomen demonstrate an indwelling internal ureteral stent on the left as well as a n ephrostomy tube on the left. There are multiple tiny stone fragments alongside the proximal portion of the indwelling internal ureteral stent within the proximal ureter. CONCLUSION: 1. Multiple tiny stone fragments alongside the indwelling internal ureteral stent within the proxima l ureter. Segundo Hicks MD on June 07, 2016 at 8:05 Board Certified Radiologist. This report was verified electronically.
[2016-06-07] MEDS: SODIUM CHLORIDE 0.9% FLUSH 10 ML FLUSH IV FLUSH SCH ×2 (09:00→21:00)
[2016-06-07 12:00] VITALS: BP 124/70; PULSE 75; RESP 16; TEMP 96.5; O2SAT 97
[2016-06-07 16:00] VITALS: BP 127/69; PULSE 77; RESP 18; TEMP 96.8; O2SAT 97
[2016-06-07 20:00] VITALS: BP 115/71; PULSE 87; RESP 19; TEMP 98.2; O2SAT 97
[2016-06-07] MEDS: LORazepam 0.5 MG TAB PO PRN (21:42)
[2016-06-08] VITALS: BP 107/64; PULSE 77; RESP 20; TEMP 96.8; O2SAT 97
[2016-06-08 04:00] VITALS: BP 124/77; PULSE 83; RESP 20; TEMP 97.1; O2SAT 99
[2016-06-08] MEDS: oxyCODONE/ACETAMINOPHEN 5 MG/325 MG TAB PO PRN ×4 (05:18→17:57)
[2016-06-08 05:50] LABS: REVIEW FLAG FINAL
[2016-06-08 08:00] VITALS: BP 110/71; PULSE 70; RESP 16; TEMP 97; O2SAT 97
[2016-06-08] MEDS: SODIUM CHLORIDE 0.9% FLUSH 10 ML FLUSH IV FLUSH SCH ×2 (08:04→21:23)
[2016-06-08] MEDS ORDERED: ZOLO50TA PO (09:38)
[2016-06-08] MEDS ORDERED: LORazepam 0.5 MG TAB PO PRN (10:15)
[2016-06-08] MEDS: SERTRALINE HCL 50 MG TAB PO SCH (10:55)
[2016-06-08 11:59] VITALS: BP 106/56; PULSE 78; RESP 17; TEMP 98; O2SAT 96
--- NOTE | 2016-06-08 12:43 | HHI.PR ---
Subjective Patient symptoms today Postop day #2 Pain better today Reports left nephrostomy tube has been draining clear urine Objective Vital Signs Vital Signs Date Time Temp Pulse Resp B/P Pulse Ox O2 Delivery O2 Flow Rate FiO2 06/08/16 11:59 98.0 78 17 106/56 96 06/08/16 10:22 18 06/08/16 08:00 97.0 70 16 110/71 97 06/08/16 06:18 18 06/08/16 04:00 97.1 83 20 124/77 99 06/08/16 00:00 96.8 77 20 107/64 97 06/07/16 20:00 98.2 87 19 115/71 97 06/07/16 16:00 96.8 77 18 127/69 97 Intake & Output 06/08/16 06/08/16 07:00 19:00 Intake Total 360 ml Output Total 2200 ml 400 ml Balance -1840 ml -400 ml Intake Oral 360 ml IV Total 0 ml Output Urine Total 550 ml Drainage Total 1650 ml 400 ml # Voids 0 # Bowel Movements 0 Result Diagram: 06/08/16 0436 06/07/16 0531 Objective Remarks Nephrostomy tube in place draining clear yellow urine with excellent output Abdomen soft, nondistended nontender Extremities well-perfused, nontender Procedures Left nephrostomy tube and left ureteral stent removed at the bedside without difficulty. Sterile dressing placed over nephrostomy tube entry site. Medications and IVs Current Medications Medications (Trade) Dose Ordered Sig/Violette Route Start Time Stop Time Status Last Admin Lactated Ringer's 1,000 ml @ 30 mls/hr Q24H PRN IV 06/06/16 07:00 06/09/16 06:59 06/06/16 07:19 (NS 500 ml Inj) 500 ml @ 30 mls/hr [id number] PRN IV 06/06/16 07:00 06/09/16 06:59 (NS Flush) 2 ml UNSCH PRN IV FLUSH 06/06/16 11:15 (NS Flush) 2 ml BID IV FLUSH 06/06/16 21:00 06/08/16 08:04 (Percocet 5-325 Mg) 1 tab Q4H PRN PO 06/06/16 11:15 06/08/16 09:22 (Percocet 5-325 Mg) 2 tab Q4H PRN PO 06/06/16 11:15 06/08/16 05:18 (Dilaudid Pf Inj) 1 mg Q2H PRN IV 06/06/16 11:15 06/06/16 15:08 (Dilaudid Pf Inj) 2 mg Q2H PRN IV 06/06/16 11:15 (Zofran Inj) 4 mg Q6H PRN IV 06/06/16 11:15 06/06/16 14:34 (Ativan) 0.5 mg HS PRN PO 06/07/16 08:15 06/07/16 21:42 (Ativan) 0.5 mg DAILY PRN PO 06/08/16 10:15 (Zoloft) 50 mg DAILY PO 06/08/16 10:15 06/08/16 10:55 Assessment and Plan Assessment and Plan Urologic impression: Status post left percutaneous nephrolithotomy with resolution of the renal calculi Plan: #1 encourage ambulation #2 continue with analgesic support #3 discharge home tomorrow morning if vitals remained stable and pain well managed with oral meds Burton Rhodes MD Jun 08, 2016 12:43
[2016-06-08] MEDS ORDERED: PERC5TAB12 PO (12:48)
[2016-06-08 16:00] VITALS: BP 109/70; PULSE 83; RESP 16; TEMP 98; O2SAT 97
[2016-06-08 20:00] VITALS: BP 107/65; PULSE 74; RESP 17; TEMP 96.7; O2SAT 99
[2016-06-08] MEDS: ONDANSETRON HCL 4 MG/2 ML VIAL IV PRN (23:57)
[2016-06-09] VITALS: BP 120/62; PULSE 71; RESP 17; TEMP 96.2; O2SAT 99
[2016-06-09] MEDS: LORazepam 0.5 MG TAB PO PRN
[2016-06-09] MEDS: oxyCODONE/ACETAMINOPHEN 5 MG/325 MG TAB PO PRN ×4 (03:55→09:07)
[2016-06-09 08:00] VITALS: BP 103/58; PULSE 85; RESP 17; TEMP 98; O2SAT 96
[2016-06-09] MEDS: SERTRALINE HCL 50 MG TAB PO SCH (08:29)
[2016-06-09] MEDS: SODIUM CHLORIDE 0.9% FLUSH 10 ML FLUSH IV FLUSH SCH ×2 (08:29→21:00)
--- NOTE | 2016-06-09 10:34 | RADRPT ---
EXAM DATE/TIME: 06/09/2016 10:07 [facility] COMPARISON: ABDOMEN KUB ONLY, June 07, 2016, 7:33. INDICATIONS : Left abdominal and flank pain, renal calculi, stent recently removed MEDICAL HISTORY : Renal calculi. SURGICAL HISTORY : percutaneous nephrolithotomy with stent ENCOUNTER: Subsequent ACUITY: 4 - 6 days PAIN SCORE: 6/10 LOCATION: Left abdomen FINDINGS: The bowel gas is nonspecific. There are no signs of obstruction or free air for technique. No defini te calcified stones are identified for technique. There is moderate amount of stool throughout the co carlos a obscuring the kidneys and previously seen tiny stones adjacent to the left double J stent are not visualized possibly obscured by stool and a stent has been removed. CONCLUSION: Previously seen tiny stones adjacent to the left double J stent are not visualize d possibly obscured by stool. Nakul Treviño MD on June 09, 2016 at 10:31 Board Certified Radiologist. This report was verified electronically.
[2016-06-09 12:00] VITALS: BP 128/69; PULSE 99; RESP 18; TEMP 99.3; O2SAT 96
[2016-06-09] MEDS: ONDANSETRON HCL 4 MG/2 ML VIAL IV PRN (12:39)
[2016-06-09] MEDS: HYDROmorphone HCL PF 1 MG/ML VIAL IV PRN (12:39)
--- NOTE | 2016-06-09 12:49 | HHI.PR ---
Subjective Patient symptoms today Reports significant left flank pain since the left nephrostomy and stent were discontinued. Reports passing a small stone this morning. Concerned about possibly being discharged all still having significant pain. Objective Vital Signs Vital Signs Date Time Temp Pulse Resp B/P Pulse Ox O2 Delivery O2 Flow Rate FiO2 06/09/16 08:00 98.0 85 17 103/58 96 06/09/16 00:00 96.2 71 17 120/62 99 06/08/16 20:00 96.7 74 17 107/65 99 06/08/16 18:57 18 06/08/16 16:00 98.0 83 16 109/70 97 Intake & Output 06/09/16 06/09/16 07:00 19:00 Intake Total 480 ml Output Total 1400 ml Balance -920 ml Intake Oral 480 ml Output Urine Total 1400 ml Result Diagram: 06/08/16 0436 06/07/16 0531 Imaging Last 24 hours Impressions Abdomen X-Ray 06/09/16 0000 Signed Impressions: Service Date/Time: May 10:07 - CONCLUSION: Previously seen tiny stones adjacent to the left double J stent are not visualized possibly obscured by stool. Nakul Treviño MD Objective Remarks Abdomen soft, nondistended nontender Extremities well-perfused, nontender Medications and IVs Current Medications Medications (Trade) Dose Ordered Sig/Violette Route Start Time Stop Time Status Last Admin (NS Flush) 2 ml UNSCH PRN IV FLUSH 06/06/16 11:15 (NS Flush) 2 ml BID IV FLUSH 06/06/16 21:00 06/09/16 08:29 (Percocet 5-325 Mg) 1 tab Q4H PRN PO 06/06/16 11:15 06/09/16 08:33 (Percocet 5-325 Mg) 2 tab Q4H PRN PO 06/06/16 11:15 06/09/16 09:07 (Dilaudid Pf Inj) 1 mg Q2H PRN IV 06/06/16 11:15 06/09/16 12:39 (Dilaudid Pf Inj) 2 mg Q2H PRN IV 06/06/16 11:15 06/08/16 21:22 (Zofran Inj) 4 mg Q6H PRN IV 06/06/16 11:15 06/09/16 12:39 (Ativan) 0.5 mg HS PRN PO 06/07/16 08:15 06/09/16 00:00 (Ativan) 0.5 mg DAILY PRN PO 06/08/16 10:15 (Zoloft) 50 mg DAILY PO 06/08/16 10:15 06/09/16 08:29 Assessment and Plan Assessment and Plan Urologic impression: #1 postop day #3 left percutaneous nephrolithotomy #2 left flank pain most likely related to passing small stone fragments Plan: #1 continue with present analgesic support #2 CT scan stone protocol to be performed this afternoon #3 discussed possible need to replace left stent Burton Rhodes MD Jun 09, 2016 12:49
--- NOTE | 2016-06-09 14:06 | RADRPT ---
EXAM DATE/TIME: 06/09/2016 13:37 [facility] COMPARISON: ABDOMEN KUB ONLY, June 07, 2016, 7:33. ABDOMEN KUB ONLY, June 09, 2016, 10:07. INDICATIONS : Calculi, status post left percutaneous nephrolithotomy ORAL CONTRAST: No oral contrast ingested. RADIATION DOSE: 10.39 CTDIvol (mGy) MEDICAL HISTORY : Renal calculi. SURGICAL HISTORY : None. ENCOUNTER: Initial ACUITY: 4 - 6 days PAIN SCALE: 6/10 LOCATION: Left flank TECHNIQUE: Volumetric scanning of the abdomen and pelvis was performed. Using automated exposure control and ad justment of the mA and/or kV according to patient size, radiation dose was kept as low as reasonably achievable to obtain optimal diagnostic quality images. FINDINGS: CT Abdomen: There are 2 separate approximately 3-4 mm stones in the right kidney without any hydronep hrosis. There is perinephric hematoma on the left side with some degree of subcapsular hematoma as we ll with areas of hemorrhage and gas bubbles in the perinephric space on the left side extending down into the paracolic gutter. There is slight fluid in the cul-de-sac. There are multiple tiny stones in the left pelvic calyceal system with gas bubbles. There are a total of 8 and 9 separate tiny stones the largest almost 3-4 mm in size. There is slight hydronephrosis and the left kidney with prominence of the left ureter and there is a tiny 2 mm stone in the posterior portion of the bladder. Tiny area of gas bubble is also seen in the bladder probably introduced from the previous nephrostomy. The aristides er, spleen, pancreas, adrenals are unremarkable. There is no evidence for any appreciable pathologica l adenopathy, or bowel obstruction. Tiny bilateral pleural effusions are seen. CT pelvis: There is no evidence for mass, abscess formation, or any significant adenopathy within the pelvis. There are old healed inferior pubic rami fractures. CONCLUSION: 1. Perinephric hematoma with hemorrhage as above extending down into the paracolic gutter. 2. There are 2 tiny stones in the right kidney and numerous tiny stones in the left kidney with sligh t hydronephrosis in the left kidney in addition to a tiny stone in the bladder. Nakul Treviño MD on June 09, 2016 at 13:57 Board Certified Radiologist. This report was verified electronically.
[2016-06-09 16:00] VITALS: BP 112/66; PULSE 103; RESP 18; TEMP 98.5; O2SAT 95
[2016-06-09] MEDS ORDERED: HYDROmorphone HCL PCA 6 MG/30 ML IV SCH (18:00)
[2016-06-09] MEDS ORDERED: NALOXONE HCL 0.4 MG/ML AMP IV PRN ×2 (18:00)
[2016-06-09] MEDS ORDERED: diphenhydrAMINE HCL 25 MG CAP PO PRN (18:00)
[2016-06-09] MEDS ORDERED: diphenhydrAMINE HCL 50 MG/ML VIAL IV PRN (18:00)
[2016-06-09 20:00] VITALS: BP 105/58; PULSE 108; RESP 18; TEMP 100.5; O2SAT 95
[2016-06-09 22:00] VITALS: TEMP 100.7
[2016-06-09] MEDS: PCA - TOTAL MG DILAUDID DELIVERED PER SHIFT OTHER SCH (22:38)
[2016-06-09] MEDS ORDERED: ACETAMINOPHEN 325 MG TAB PO PRN (23:00)
[2016-06-10] VITALS: BP 93/51; PULSE 106; RESP 17; TEMP 100.3; O2SAT 95
[2016-06-10] MEDS: PCA - TOTAL MG DILAUDID DELIVERED PER SHIFT OTHER SCH ×2 (06:22→14:50)
[2016-06-10 08:00] VITALS: BP 103/57; PULSE 90; RESP 16; TEMP 97.6; O2SAT 96
[2016-06-10] MEDS: SODIUM CHLORIDE 0.9% FLUSH 10 ML FLUSH IV FLUSH SCH ×2 (08:18→20:02)
[2016-06-10] MEDS: SERTRALINE HCL 50 MG TAB PO SCH (08:19)
[2016-06-10] MEDS ORDERED: ZOFR4TAB3 SL (09:43)
--- NOTE | 2016-06-10 09:48 | HHI.DS ---
Discharge Summary Admission Date Jun 06, 2016 at 11:15 Discharge Date: Jun 10, 2016 Admitting Diagnosis (1) Renal calculus, left Diagnosis: Principal Procedures On June 06, 2016 patient underwent a left percutaneous nephrolithotomy, exchange of left nephrostomy tube and left nephrostogram. Brief History 51-year-old female with multiple left renal calculi refractory to shockwave lithotripsy who was admitted on June 06 to undergo a left percutaneous nephrolithotomy. CBC/BMP: 06/08/16 0436 06/07/16 0531 Significant Findings Laboratory Tests Test 06/08/16 04:36 Hemoglobin 9.6 GM/DL (11.6-15.3) Hematocrit 28.0 % (35.0-46.0) Imaging Most recent imaging was a CT scan of the abdomen and pelvis that demonstrated multiple tiny stone fragments involving the lower aspect of the left kidney. No hydronephrosis was noted. Postsurgical changes were noted to the left kidney as expected. PE at Discharge Abdomen soft, nondistended, nontender Left nephrostomy site clean and dry Extremities well-perfused, nontender Hospital Course Patient was admitted on June 06 and underwent the procedures as outlined above without complications. Postoperatively the patient made slow steady progress with each postop day. Her nephrostomy tube and ureteral stent were removed at the bedside on June 08 and soon thereafter her degree of left flank pain increased. On June [address] scan was ordered that demonstrated postsurgical changes to the left kidney, multiple tiny stone fragments involving the lower pole of left kidney and no evidence of significant hydroureteronephrosis. Since the CT scan was performed the patient did pass multiple small stone fragments and has had less pain. On the morning of June 10, the patient's vital signs are stable, pain was well managed and patient was tolerating oral intake. I discussed that I would discharge her home later that same day as long as her vital signs remained stable and her pain was well managed with oral medication. Pt Condition on Discharge: Good Discharge Disposition: Discharge Home Discharge Instructions DIET: Follow Instructions for: As Tolerated, No Restrictions Activities you can perform: See Additionl Instruction Additional Activity Instructio: No strenuous activity for at least 1 week Burton Rhodes MD Jun 10, 2016 09:48
[2016-06-10 12:00] VITALS: BP 98/57; PULSE 101; RESP 16; TEMP 98.8; O2SAT 96
[2016-06-10 16:00] VITALS: BP 111/67; PULSE 97; RESP 16; TEMP 99.6; O2SAT 97
[2016-06-10] MEDS ORDERED: MAGNESIUM CITRATE SOLN 300 ML BTL PO ONE (18:45)
[2016-06-10] MEDS ORDERED: NALOXONE HCL 0.4 MG/ML AMP IV PRN (18:45)
[2016-06-10 20:00] VITALS: BP 110/58; PULSE 99; RESP 20; TEMP 100; O2SAT 95
[2016-06-10] MEDS: ONDANSETRON HCL 4 MG/2 ML VIAL IV PRN (20:07)
[2016-06-10] MEDS: LORazepam 0.5 MG TAB PO PRN (20:08)
[2016-06-11] VITALS: BP 98/60; PULSE 89; RESP 20; TEMP 98.9; O2SAT 97
[2016-06-11] MEDS: oxyCODONE/ACETAMINOPHEN 5 MG/325 MG TAB PO PRN ×2 (00:44→08:42)
[2016-06-11 08:00] VITALS: BP 113/62; PULSE 90; RESP 16; TEMP 97.2; O2SAT 97
[2016-06-11] MEDS: SERTRALINE HCL 50 MG TAB PO SCH (08:41)
--- NOTE | 2016-06-11 08:49 | HHI.PR ---
Subjective Patient symptoms today Pt feels better. Pain controlled. Objective Vital Signs Vital Signs Date Time Temp Pulse Resp B/P Pulse Ox O2 Delivery O2 Flow Rate FiO2 06/11/16 00:00 98.9 89 20 98/60 97 06/10/16 20:00 100.0 99 20 110/58 95 06/10/16 16:00 99.6 97 16 111/67 97 06/10/16 14:50 18 06/10/16 12:00 98.8 101 16 98/57 96 Result Diagram: 06/08/16 0436 06/07/16 0531 Objective Remarks Abdomen soft, nondistended nontender Extremities well-perfused, nontender 06/11 Abdomen soft, nondistended nontender Extremities well-perfused, nontender Medications and IVs Current Medications Medications (Trade) Dose Ordered Sig/Violette Route Start Time Stop Time Status Last Admin (NS Flush) 2 ml UNSCH PRN IV FLUSH 06/06/16 11:15 (NS Flush) 2 ml BID IV FLUSH 06/06/16 21:00 06/10/16 20:02 (Percocet 5-325 Mg) 1 tab Q4H PRN PO 06/06/16 11:15 06/09/16 08:33 (Percocet 5-325 Mg) 2 tab Q4H PRN PO 06/06/16 11:15 06/11/16 08:42 (Zofran Inj) 4 mg Q6H PRN IV 06/06/16 11:15 06/10/16 20:07 (Ativan) 0.5 mg HS PRN PO 06/07/16 08:15 06/10/16 20:08 (Ativan) 0.5 mg DAILY PRN PO 06/08/16 10:15 (Zoloft) 50 mg DAILY PO 06/08/16 10:15 06/11/16 08:41 (Tylenol) 650 mg Q6H PRN PO 06/09/16 23:00 06/09/16 23:04 (Narcan Inj) 0.4 mg UNSCH PRN IV 06/10/16 18:45 Assessment and Plan Assessment and Plan Urologic impression: #1 postop day #3 left percutaneous nephrolithotomy #2 left flank pain most likely related to passing small stone fragments Plan: #1 continue with present analgesic support #2 CT scan stone protocol to be performed this afternoon #3 discussed possible need to replace left stent 06/11 D/C home Vinicius Stanley DO Jun 11, 2016 08:49
[2016-06-11] MEDS: SODIUM CHLORIDE 0.9% FLUSH 10 ML FLUSH IV FLUSH SCH (08:56)
[2016-06-14] MEDS ORDERED: CEPH-459 PO (08:32)
[2016-06-30] MEDS ORDERED: UROCTAB2 PO (12:20)
== END 2016-06-11 10:30 | disposition home or self-care (01) ==
LOC: HSDC 06:12 → HSDI 11:15 → N07A 15:18
PROVIDERS: ADMIT Urology; ATTEND Urology
DX: N20.0 Calculus of kidney (principal); R10.9 Unspecified abdominal pain
CPT/HCPCS: 00862; 50081; 74000; 74176; 76000; 80048; 82370; 85014; 85018; 85025; 88300; 94150; C1726; C1769; G0378; J0131; J0690; J0780; J1170; J2175; J2250; J2370; J2405; J2710; J3010; J7120; Q9967

== ENCOUNTER 2017-06-11 20:33 | Emergency (ER) | payer BC, OTHER ==
[~2017-06-11] VITALS: Ht 165.1 cm; Wt 69.3 kg
[~2017-06-11 20:33] MED LIST changes: -HYDR-3533 PO; -LORA-373 PO; +LORA0.5T PO; +OFLO0.3D5 LEFT EYE; -PNEU13P IM; +UROCTAB2 PO
[2017-06-11 20:44] VITALS: BP 148/84; PULSE 91; RESP 18; TEMP 98.7; O2SAT 95
[2017-06-11] MEDS ORDERED: TETANUS/DIPHTHERIA TOXOID ADULT 0.5 ML VIAL IM ONE (21:15)
--- NOTE | 2017-06-11 21:17 | PD ---
HPI Chief Complaint: Wound/Suture/Staple Re-Check Time Seen by Provider: 21:00 Travel History International Travel<30 days: No Contact w/Intl Traveler<30days: No Traveled to known affect area: No History of Present Illness HPI 52-year-old female patient presents to the ER today because she states that she had been helping a friend out with fixing a fence when she stepped on a board with a nail in it and it went through her flip-flop and caught her on her right foot. She has not had any recent tetanus shots, and states that she is concerned about getting a tetanus shot. She denies any other issues or injuries. Modifying Factors: None Associated Signs & Symptoms: Right foot puncture wound with a rose nail, tetanus shot needed Risk Factors: None PFSH Past Medical History Blood Disorders: No Anxiety: Yes Depression: No Cancer: No Cardiovascular Problems: No Diabetes: No Diminished Hearing: No Endocrine: No Genitourinary: Yes (kidney stones) Hepatitis: No Hiatal Hernia: No Immune Disorder: No Musculoskeletal: No Neurologic: No Reproductive: No Respiratory: No Immunizations Current: No Thyroid Disease: No Tetanus Vaccination: > 5 Years Influenza Vaccination: No ?: Not Menopausal: Yes : 4 Para: 4 Past Surgical History AICD: No Genitourinary Surgery: Yes (nepro lithias surgery ) Joint Replacement: No Pacemaker: No Other Surgery: Yes Family History Family Myocardial Infarction: Yes (father - [place] 70's) Social History Alcohol Use: Yes (MONTHS AGO) Tobacco Use: No Substance Use: No Allergies-Medications (Allergen,Severity, Reaction): Coded Allergies: *MDRO Multi-Drug Resistant Organism (Verified Adverse Reaction, Unknown, ) 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 Day 3-7: Apply 2 drops in left eye every 6 hrs. Urocit-K 10 (Potassium Citrate (Alkalinizer)) 1,080 Mg Tab 10 Meq PO TID Zoloft (Sertraline HCl) 100 Mg Tab 100 Mg PO DAILY next refill must be from mental health (05/25/16) Reported Lorazepam 0.5 Mg Tab 0.5 Mg PO DAILY PRN Review of Systems Except as stated in HPI: all other systems reviewed are Neg Physical Exam Narrative GENERAL: Well-nourished, well-developed pleasant middle-aged female patient in no acute distress. SKIN: Focused skin assessment warm/dry. There is a small shallow laceration to the lateral part of the right foot. HEAD: Normocephalic. EYES: No scleral icterus. No injection or drainage. NECK: Supple, trachea midline. No JVD or lymphadenopathy. Data Data Last Documented VS Vital Signs Date Time Temp Pulse Resp B/P (MAP) Pulse Ox O2 Delivery O2 Flow Rate FiO2 06/11/17 21:02 20 06/11/17 20:44 98.7 91 148/84 (105) 95 Orders Orders Tetanus/Diphtheria Tox Adult (Tetanus/Di (06/11/17 21:15) Ed Discharge Order (06/11/17 21:13) MDM Medical Decision Making Medical Screen Exam Complete: Yes Emergency Medical Condition: Yes Medical Record Reviewed: Yes Differential Diagnosis Right foot injury Narrative Course Tetanus shot is updated in the ER. The small laceration is fairly superficial and is not a true puncture wound through the foot. At this point, the foot was soaked and cleaned and iodine. Plan would be to release her. Wound care instructions given. Return for any signs of infection or new issues as needed. The plan was discussed with her and she states understanding. Diagnosis Primary Impression: Injury of foot, right, superficial Disposition: 01 DISCHARGE HOME Condition: Stable SoonMax weaver MD Jun 11, 2017 21:17
== END 2017-06-11 21:27 | disposition home or self-care (01) ==
LOC: PHEFT 20:33
DX: S91.331A Puncture wound without foreign body, right foot, initial encounter (principal); F41.9 Anxiety disorder, unspecified; W22.8XXA Striking against or struck by other objects, initial encounter; Z87.442 Personal history of urinary calculi; Z23 Encounter for immunization; Z79.899 Other long term (current) drug therapy
CPT/HCPCS: 90471; 90714